=== PATIENT | male | born 2005 | race American Indian/Alaskan Native ===

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

== ENCOUNTER 2024-12-26 09:25 | Emergency (ER) | payer SELFPAY ==
[2024-12-26] MEDS: Ketorolac 30 MG/ML SDV IM ONE (09:42)
[2024-12-26 11:52] VITALS: BP 135/78; PULSE 80
== END 2024-12-26 11:46 | disposition home or self-care (01) ==
LOC: DL.ED 09:25
DX: J02.0 Streptococcal pharyngitis (principal); F17.210 Nicotine dependence, cigarettes, uncomplicated; Z86.16 Personal history of COVID-19
CPT/HCPCS: 87430; 96372; 99284; J1885; 99283

== ENCOUNTER 2025-04-23 17:08 | Emergency (ER) | payer SELFPAY ==
[2025-04-23 17:20] VITALS: BP 137/73; PULSE 99
[2025-04-23] MEDS: Diphtheria,Pertussis(Acell),Tetanus Vaccine 0.5 ML Syringe IM ONE (17:25)
== END 2025-04-23 17:55 | disposition home or self-care (01) ==
LOC: DL.ED 17:08
DX: S61.210A Laceration without foreign body of right index finger without damage to nail, initial encounter (principal); F17.200 Nicotine dependence, unspecified, uncomplicated; Z86.16 Personal history of COVID-19; Z23 Encounter for immunization; W26.8XXA Contact with other sharp object(s), not elsewhere classified, initial encounter
CPT/HCPCS: 12001; 90471; 90715; 99282; J2003

== ENCOUNTER 2025-08-27 02:02 | Emergency (ER) | payer SELFPAY ==
[2025-08-27 02:21] VITALS: BP 145/92; PULSE 104
[2025-08-27] MEDS: Ondansetron 4 MG Tab.DIS PO ONE (03:01)
== END 2025-08-27 04:13 | disposition home or self-care (01) ==
LOC: DL.ED 02:02
DX: J06.9 Acute upper respiratory infection, unspecified (principal); B97.89 Other viral agents as the cause of diseases classified elsewhere; Z86.16 Personal history of COVID-19
CPT/HCPCS: 71045; 87428; 99282; 99285; A9270; J7620